=== PATIENT | female | born 1965 | race Caucasian/White ===

== ENCOUNTER → 2016-08-20 | Outpatient (CLI) | payer OTHER ==
--- NOTE | 2016-08-20 16:01 | MA ---
Screening Digital Mammogram With iCAD Analysis Clinical Indications: Routine screening. The patient has a personal history of left breast cancer usman ated with lumpectomy and radiation. She has had other benign biopsies. Her mother was diagnosed with breast cancer in her 50s. Technique: Standard cephalocaudal projections were obtained. Digital breast tomosynthesis was perform ed in the MLO projection with reconstruction at 1.0-mm slice thickness and composite MLO views recons tructed. A skin marker was placed on the left breast lumpectomy scar. This examination was processed by the iCAD computer-aided detection system. Comparison: June 2015, May 2015, May 2014, May 2013, April 2012, April 2011, O ctober 2009, April 2009, April 2008. Breast density: Type D: Extremely dense. Findings: CAD was reviewed. Architectural change at the left breast lumpectomy site is stable. Nodula r asymmetry in the anterior right breast is smaller, consistent with benign cyst aspiration performed previously. No spiculated masses, suspicious calcifications or secondary signs of malignancy are see n. There has been no significant change in the appearance of either breast. Impression: Benign mammography. BI-RADS 2. Recommendation: Routine mammographic screening in one year as long as physical examination is negativ e in this patient with extremely dense breast parenchyma. Counts Include [facility] will send a result letter to the patient. Negative mammography should not preclude additional workup of a clinically suspicious finding. The patient's information is entered into a reminder system with a target due date for her next mammo gram.
== END ==
LOC: FIMAGING 13:21
DX: Z12.31 Encounter for screening mammogram for malignant neoplasm of breast (principal); Z85.3 Personal history of malignant neoplasm of breast; Z80.3 Family history of malignant neoplasm of breast
CPT/HCPCS: G0202

== ENCOUNTER → 2017-08-26 | Outpatient (CLI) | payer OTHER | LOC: FIMAGING 09:05 | PROVIDERS: ATTEND Surgery | DX: Z12.31 Encounter for screening mammogram for malignant neoplasm of breast (principal); Z85.3 Personal history of malignant neoplasm of breast ==

== ENCOUNTER → 2018-09-04 | Outpatient (CLI) | payer OTHER | LOC: FIMAGING 08:59 | PROVIDERS: ATTEND Family Medicine | DX: Z12.31 Encounter for screening mammogram for malignant neoplasm of breast (principal); Z85.3 Personal history of malignant neoplasm of breast; Z80.3 Family history of malignant neoplasm of breast ==

== ENCOUNTER → 2018-11-07 | Outpatient (CLI) | payer OTHER | LOC: FIMAGING 12:27 | PROVIDERS: ATTEND Surgery | DX: N63.20 Unspecified lump in the left breast, unspecified quadrant (principal) ==

== ENCOUNTER 2018-11-13 06:44 | Day surgery (SDC) | payer OTHER ==
[2018-11-13] MEDS ORDERED: LR 1,000 ML IV ONE (06:53)
[2018-11-13] MEDS ORDERED: ceFAZolin 2 GM/DEXTROSE 100 ML IV ONE (06:53)
[2018-11-13] MEDS ORDERED: BUPIVACAINE 0.5% 30 ML SDV ONE (07:54)
--- NOTE | 2018-11-13 08:04 | PDHPUP ---
History & Physical Update H&P update statement: This history and physical update is based on an assessment of the patient which was completed after admission or registration (within 24 hours), but prior to the surgery/procedure. H&P update: H&P reviewed & patient examined, no change in patient's condition since H&P completed
[2018-11-13] MEDS ORDERED: LIDOCAINE 1% 300 MG/30 ML SDV ONE (08:12)
[2018-11-13] MEDS ORDERED: MIDAZOLAM 2 MG/2 ML VIAL ONE (08:17)
[2018-11-13] MEDS ORDERED: MIDAZOLAM 2 MG/2 ML VIAL IVP ONE (08:27)
[2018-11-13] MEDS ORDERED: PROPOFOL 200 MG/20 ML VIAL ONE (08:28)
[2018-11-13] MEDS ORDERED: fentaNYL 100 MCG/2 ML INJ ONE ×2 (08:28→09:13)
--- NOTE | 2018-11-13 08:28 | PDANEPAE ---
ANE Past Medical History - Cardiovascular History Hx Hypertension: No Hx Arrhythmias: No Hx Chest Pain: No Hx Coronary Artery / Peripheral Vascular Disease: No Hx CHF / Valvular Disease: No Hx Palpitations: No Cardiovascular History Comment: high chol - Pulmonary History Hx COPD: No Hx Asthma/Reactive Airway Disease: No Hx Recent Upper Respiratory Infection: No Hx Oxygen in Use at Home: No Hx Sleep Apnea: No Sleep Apnea Screening Result - Last Documented: Negative - Neurologic History Hx Cerebrovascular Accident: No Hx Seizures: No Hx Dementia: No - Endocrine History Hx Diabetes: No Obesity: mild - Renal History Hx Renal Disorders: No - Liver History Hx Hepatic Disorders: No - Neurological & Psychiatric Hx Hx Neurological and Psychiatric Disorders: No - Cancer History Hx Cancer: Yes Cancer History Comment: breast ca - Congenital Disorder History Hx Congenital Disorders: No - GI History GERD: no Hx Gastrointestinal Disorders: No - Other Health History Other Health History: wears glasses - Chronic Pain History Chronic Pain: No - Surgical History Prior Surgeries: 06/21/10 hysteroscopy with Imig. multiple breast surgeries ANE Review of Systems Review of Systems: - Exercise capacity METS (RN): 4 METS ANE Patient History - Allergies Allergies/Adverse Reactions: codeine [Codeine] Allergy (Verified 11/13/18 06:55) Itching - Home Medications Home medications: home medication list seen and reviewed Home Medications: SIMVASTATIN 11/11/18 [Last Taken 11/12/18] - NPO status NPO Status: no food or drink >8 hours NPO Since - Liquids (Date): 11/12/18 NPO Since - Liquids (Time): 21:00 NPO Since - Solids (Date): 11/12/18 NPO Since - Solids (Time): 19:00 - Anes Hx Anes Hx: no prior problems - Smoking Hx Smoking Status: Never smoked - Family Anes Hx Family Hx Anesthesia Complications: none ANE Labs/Vital Signs - Vital Signs Heart Rate: 70 Respiratory Rate: 16 O2 Sat (%): 94 Height: 165.1 cm Weight: 78.471 kg ANE Physical Exam - Airway Neck exam: FROM Mallampati Score: Class 2 Mouth exam: normal dental/mouth exam - Pulmonary Pulmonary: no respiratory distress, no rales or rhonchi, clear to auscultation - Cardiovascular Cardiovascular: regular rate and rhythym, no murmur, rub, or gallop - ASA Status ASA Status: II ANE Anesthesia Plan Anesthesia Plan: MAC
[2018-11-13] MEDS ORDERED: NALOXONE HCL 0.4 MG/ML INJ IVP PRN (08:33)
[2018-11-13] MEDS ORDERED: PROMETHAZINE HCL 25 MG/ML INJ IVP PRN (08:33)
[2018-11-13] MEDS ORDERED: DEXAMETHASONE 4 MG/ML VIAL ONE ×3 (08:36)
[2018-11-13] MEDS ORDERED: ACETAMINOPHEN 500 MG TAB PO PRN (08:41)
[2018-11-13] MEDS ORDERED: LABETALOL HCL 5 MG/ML 20 ML MDV IVP PRN (08:41)
[2018-11-13] MEDS ORDERED: ENALAPRILAT DIHYDRATE 1.25 MG/ML VIAL IVP PRN (08:41)
[2018-11-13] MEDS ORDERED: LR 500 ML IV PRN (08:41)
[2018-11-13] MEDS ORDERED: ONDANSETRON 4 MG/2 ML VIAL IVP PRN (08:41)
--- NOTE | 2018-11-13 08:56 | POSTOPPROG ---
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
[2018-11-13] MEDS: fentaNYL 100 MCG/2 ML INJ IVP PRN ×2 (09:15→09:53)
--- NOTE | 2018-11-13 09:16 | POSTANESTH ---
Post Anesthetic Evaluation Cardiovascular Status: Normal, Stable Respiratory Status: Normal, Stable, Similar to Pre-op Cond. Level of Consciousness/Mental Status: Can Participate in Eval, Alert and Oriented Pain Control: Adequate, Prn Tx Ordered Nausea/Vomiting Control: Adequate, Prn Tx Ordered Complications Possibly Related to Anesthesia: None Noted
--- NOTE | 2018-11-13 10:17 | GOP ---
[f rep st] OPERATIVE REPORT DATE OF OPERATION: 11/13/2018 SURGEON: Jenniffer Dumont MD ANESTHESIA: Monitored anesthesia care with IV sedation. ANESTHESIOLOGIST: Dr. Rizwan Alvares. PREOPERATIVE DIAGNOSIS: Left breast masses. POSTOPERATIVE DIAGNOSIS: Left breast masses. PROCEDURE PERFORMED: Excisional biopsy,left breast. FINDINGS: Two firm nodules medial to nipple and the areola. SPECIMENS: Medial areola. ESTIMATED BLOOD LOSS: 5 cc. INDICATIONS: The patient is a 53-year-old woman who has a history of DCIS status post lumpectomy and radiation 20 years ago. She then developed nodules. Her mammogram did not show any abnormalities. The ultrasound did identify subcu nodules. DESCRIPTION OF PROCEDURE: Patient was brought into the operating room, placed supine on the table. Monitored anesthesia care with IV sedation was performed. Her left breast was prepped and draped in the usual sterile fashion. I made an ellipse of the areola down through into the fatty breast tissue . I sent this to Pathology for permanent. Hemostasis was achieved. The wound was closed with 3-0 V icryl, followed by 4-0 Monocryl. Mastisol, Steri-Strips, and sterile dressing were applied. She was awakened in the operating room and transferred to PACU in stable condition. /[id number]/MODL
[2018-11-13 10:19] VITALS: BP 121/70
== END 2018-11-13 10:20 | disposition home or self-care (01) ==
LOC: FSGY 06:44
PROVIDERS: ATTEND Surgery
PROC: 0HBU0ZX Excision of Left Breast, Open Approach, Diagnostic (ICD-10-PCS; principal; 2018-11-13 08:15)
DX: C50.812 Malignant neoplasm of overlapping sites of left female breast (principal)
CPT/HCPCS: J0690; J1100; J2250; J2704; J3010

== ENCOUNTER → 2018-11-28 | Outpatient (CLI) | payer OTHER ==
[~2018-11-28] MED LIST: GADOBUTROL 10 ML VIAL IVP ONE
== END ==
LOC: FIMAGING 08:43
PROVIDERS: ATTEND Surgery
DX: C50.412 Malignant neoplasm of upper-outer quadrant of left female breast (principal)
CPT/HCPCS: A9585; C8908

== ENCOUNTER 2018-12-09 08:36 | Observation (INO) | payer OTHER ==
[2018-12-09] MEDS ORDERED: GENTAMICIN SULFATE 80 MG/2 ML VIAL ONE (11:46)
[2018-12-09] MEDS ORDERED: BACITRACIN ZINC 0.5 OZ OINTTUBE TP ONE (11:46)
[2018-12-09] MEDS ORDERED: THROMBIN (BOVINE) 20,000 UNIT VIAL TP ONE (11:46)
[2018-12-09] MEDS ORDERED: BUPIVACAINE 0.25% 30 ML SDV ONE (11:46)
[2018-12-09] MEDS ORDERED: METHYLENE BLUE 0.5% 50 MG/10 ML AMP ONE (11:47)
[2018-12-09] MEDS ORDERED: BACITRACIN 50,000 UNITS/10 ML SYR IRR ONE (11:48)
[2018-12-09] MEDS ORDERED: ceFAZolin 1 GM/5 ML SYR ONE (11:48)
[2018-12-09] MEDS ORDERED: ceFAZolin 2 GM/DEXTROSE 100 ML IV ONE (12:02)
[2018-12-09] MEDS ORDERED: LR 1,000 ML IV ONE (12:03)
[2018-12-09] MEDS ORDERED: MIDAZOLAM 2 MG/2 ML VIAL IVP ONE (14:30)
--- NOTE | 2018-12-09 14:33 | PDANEPAE ---
ANE Past Medical History - Cardiovascular History Hx Hypertension: No Hx Arrhythmias: No Hx Chest Pain: No Hx Coronary Artery / Peripheral Vascular Disease: No Hx CHF / Valvular Disease: No Hx Palpitations: No Cardiovascular History Comment: high chol - Pulmonary History Hx COPD: No Hx Asthma/Reactive Airway Disease: No Hx Recent Upper Respiratory Infection: No Hx Oxygen in Use at Home: No Hx Sleep Apnea: No Sleep Apnea Screening Result - Last Documented: Negative - Neurologic History Hx Cerebrovascular Accident: No Hx Seizures: No Hx Dementia: No - Endocrine History Hx Diabetes: No Obesity: no - Renal History Hx Renal Disorders: No - Liver History Hx Hepatic Disorders: No - Neurological & Psychiatric Hx Hx Neurological and Psychiatric Disorders: No - Cancer History Hx Cancer: Yes Cancer History Comment: breast ca - Congenital Disorder History Hx Congenital Disorders: No - GI History GERD: no Hx Gastrointestinal Disorders: No - Other Health History Other Health History: wears glasses - Chronic Pain History Chronic Pain: No - Surgical History Prior Surgeries: 11/13/18 left freast biopsy with Tim. 06/21/10 hysteroscopy with Imig. multiple breast surgeries ANE Review of Systems Review of Systems: - Exercise capacity METS (RN): 4 METS ANE Patient History - Allergies Allergies/Adverse Reactions: chlorhexidine Allergy (Verified 12/08/18 15:32) Itching codeine [Codeine] Allergy (Verified 12/08/18 15:32) Itching - Home Medications Home medications: home medication list seen and reviewed Home Medications: SIMVASTATIN 11/11/18 [Last Taken 11/12/18] Keflex 12/08/18 [Last Taken Unknown] - NPO status NPO Status: no food or drink >8 hours NPO Since - Liquids (Date): 12/09/18 NPO Since - Liquids (Time): 10:00 NPO Since - Solids (Date): 12/08/18 - Anes Hx Anes Hx: no prior problems - Smoking Hx Smoking Status: Never smoked - Family Anes Hx Family Hx Anesthesia Complications: none ANE Labs/Vital Signs - Vital Signs Blood Pressure: 132/76 Heart Rate: 79 Respiratory Rate: 16 O2 Sat (%): 93 Height: 165.1 cm Weight: 78.471 kg ANE Physical Exam - Airway Neck exam: FROM Mallampati Score: Class 2 Mouth exam: normal dental/mouth exam - Pulmonary Pulmonary: no respiratory distress, no rales or rhonchi, clear to auscultation - Cardiovascular Cardiovascular: regular rate and rhythym, no murmur, rub, or gallop - ASA Status ASA Status: II ANE Anesthesia Plan Anesthesia Plan: GA w LMA
[2018-12-09] MEDS ORDERED: DEXMEDETOMIDINE HCL 200 MCG in NS 50 ML IV ONE (14:39)
[2018-12-09] MEDS ORDERED: PROPOFOL 200 MG/20 ML VIAL ONE (15:41)
[2018-12-09] MEDS ORDERED: HYDROmorphONE/DILAUDID 2 MG/ML INJ ONE (15:41)
[2018-12-09] MEDS ORDERED: LIDOCAINE 2% JELLY 6 ML TOPICAL SYR ONE (15:42)
[2018-12-09] MEDS ORDERED: LIDOCAINE 2% 2 ML INJ ONE (15:42)
[2018-12-09] MEDS ORDERED: DEXAMETHASONE 4 MG/ML VIAL ONE ×2 (15:42)
[2018-12-09] MEDS ORDERED: ONDANSETRON 4 MG/2 ML VIAL ONE (15:42)
[2018-12-09] MEDS ORDERED: LIDO/EPI 1% **Not for Epidural 20 ML MDV ONE (15:59)
[2018-12-09] MEDS ORDERED: diphenhydrAMINE 25 MG CAP PO PRN (16:10)
[2018-12-09] MEDS ORDERED: KETAMINE 200 MG/20 ML VIAL ONE (16:11)
[2018-12-09] MEDS ORDERED: ONDANSETRON DISINTEGRATING 4 MG TAB PO PRN (16:13)
[2018-12-09] MEDS ORDERED: ACETAMINOPHEN 325 MG TAB PO PRN (16:13)
[2018-12-09] MEDS ORDERED: ONDANSETRON 4 MG/2 ML VIAL IVP PRN ×2 (16:13→17:18)
[2018-12-09] MEDS ORDERED: PHENYLEPHRINE HCL 100 MCG/ML SYR ONE (16:28)
[2018-12-09] MEDS ORDERED: PROMETHAZINE HCL 25 MG/ML INJ IVP PRN (17:18)
[2018-12-09] MEDS ORDERED: NALOXONE HCL 0.4 MG/ML INJ IVP PRN (17:18)
[2018-12-09] MEDS ORDERED: fentaNYL 100 MCG/2 ML INJ IVP PRN (17:18)
[2018-12-09] MEDS ORDERED: HYDROCODONE/APAP 5/325 TAB PO PRN (17:18)
[2018-12-09] MEDS ORDERED: DIAZEPAM 10 MG/2 ML SYR IVP PRN (17:18)
[2018-12-09] MEDS ORDERED: ACETAMINOPHEN 500 MG TAB PO PRN (17:18)
[2018-12-09] MEDS ORDERED: LR 500 ML IV PRN (17:18)
[2018-12-09] MEDS ORDERED: HYDROmorphONE/DILAUDID 1 MG/ML INJ IVP PRN (17:18)
[2018-12-09] MEDS ORDERED: MEPERIDINE 25 MG/0.5 ML AMP IVP PRN (17:18)
--- NOTE | 2018-12-09 17:25 | POSTOPPROG ---
Post Op Note Date of Operation: 12/09/18 Surgeon: Jenniffer Dumont Subway Operator: zaki Anesthesiologist: elsy Anesthesia: GET(General Endotracheal) Pre-op Diagnosis: L breast ca Post-op Diagnosis: same Indication: 53yo F with h/o DCIS now with multifocal L breast CA Procedure: B mastectomy B SLN bx Findings: none unusual Inf/Abcess present in the surg proc area at time of surgery?: No EBL: Minimal Complications: none immediately postop Bowel Protocol: N/A Clean Closure Performed: N/A Drains: Brian Hernandez Specimen(s): L breast R breast L SLN R SLN
[2018-12-09] MEDS ORDERED: fentaNYL 100 MCG/2 ML INJ ONE (17:53)
--- NOTE | 2018-12-09 17:53 | POSTANESTH ---
Post Anesthetic Evaluation Cardiovascular Status: Normal, Stable, Similar to Pre-Op Cond Respiratory Status: Normal, Stable, Similar to Pre-op Cond. Level of Consciousness/Mental Status: Can Participate in Eval, Mildly Sleepy, Arousable Pain Control: Inadeq, Add Tx Required (Pain 5/10 on arrival.) Nausea/Vomiting Control: Adequate, Prn Tx Ordered Complications Possibly Related to Anesthesia: None Noted
--- NOTE | 2018-12-09 19:21 | GOP ---
[f rep st] OPERATIVE REPORT DATE OF OPERATION: 12/09/2018 SURGEON: Siobhan Barrios Jr., MD ROTOR WINDER: Yobani Wade CST, by surgeon request. ANESTHESIA: General inhalational anesthetic. ANESTHESIOLOGIST: Albert Alvares MD. PREOPERATIVE DIAGNOSIS: Multifocal left breast cancer. POSTOPERATIVE DIAGNOSIS: Multifocal left breast cancer. PROCEDURE PERFORMED: Immediate bilateral breast reconstruction utilizing tissue expanders and human dermal allograft. FINDINGS: ESTIMATED BLOOD LOSS: During reconstruction, less than 10 cc. INDICATIONS: The patient is a 53-year-old white female who has a recurrent left-sided multifocal lazaro ast cancer. She elected to undergo bilateral skin-sparing mastectomies and was referred by Dr. Kasie Dumont to discuss reconstructive options. She was deemed an excellent candidate for prepectoral plac ement of AlloDerm-wrapped tissue expanders and at the time of mastectomies was taken to in the operat ing room for that purpose. DESCRIPTION OF PROCEDURE: After the risks and benefits of the procedure were explained the patient, formal operative consent was obtained. She was seen in the operating room. After adequate inhalatio nal general anesthesia was provided by Dr. Rizwan Alvares, her premarked mastectomy incisions were injec ovidio with lidocaine containing adrenaline. She was prepped and draped in normal sterile fashion. Unc omplicated bilateral mastectomies with sentinel lymph node mapping were performed by Dr. Dumont. Ravindra nstruction began by rinsing the pockets with normal saline. Meticulous hemostasis was assured. The pockets were then rinsed with triple antibiotic saline solution. During the mastectomies, tissue exp david had been prepared. These were Allergan Natrelle 133+ FX 450 cc devices. They were tested, fi lled with 450 cc with air and then wrapped with AlloDerm that had been triple soaked in normal saline and soaked in triple antibiotic saline. The AlloDerm was trimmed to ensure a smooth and even contou r over the fully expanded tissue strike planning applications. The tissue expanders were then deflated, soaked in triple antibiotic saline, and at the completion of the mastectomy, they were placed into the mastectomy cav ity into the correct anatomic position. They were sutured down to the chest wall using 2-0 PDS sutur e. They were deflated to 150 cc total fill volume to minimize tension on the skin flaps. The skin e dges were reapproximated using everting deep dermal 3-0 Monocryl suture and further everted using ankur gical luly. Prior to closure, a 15-round drain was placed in the each side along with 15 cc of 0. 25% plain Marcaine. She had bacitracin, Xeroform and 4x4s applied to her incisions with a compressiv e bra. Skin flaps were warm and pink with good capillary refill. She was extubated in the operating room, taken to the recovery room awake in a stable condition. TISSUE EXPANDERS: Allergan Natrelle 133+ FX 450 cc devices filled to 150 cc bilaterally. DRAINS: Two NEHA drains placed. COMPLICATIONS: No complications. /[id number]/MODL
[2018-12-09] MEDS: HYDROCODONE/APAP 5/325 TAB PO PRN (19:59)
[2018-12-09] MEDS: CYCLOBENZAPRINE 10 MG TAB PO SCH (21:48)
[2018-12-10] MEDS: HYDROCODONE/APAP 5/325 TAB PO PRN ×2 (00:06→05:38)
--- NOTE | 2018-12-10 07:35 | SOAPPROG ---
SOAP Progress Note Assessment/Plan: Assessment/Plan: 53yo F POD#1 s/p B mastectomy with B SLN bx for multifocal breast ca Pain controlled Drain output thin Ambulating independently Dispo: DC today. S: feeling fine this am. pain well controlled. O: comfortable in NAD incisions CDI Dressings intact Objective: Vital Signs Temp Pulse Resp BP Pulse Ox 36.7 C 49 L 16 157/83 H 98 12/10/18 05:32 12/10/18 05:32 12/10/18 05:32 12/10/18 05:32 12/10/18 05:32 12/09/18 12/10/18 12/11/18 05:59 05:59 05:59 Intake Total 200 Output Total 278 Balance -78 ICD10 Worksheet Patient Problems: Problems Problem Status Onset Breast cancer Acute - ICD10 Problem Qualifiers (1) Breast cancer
[2018-12-10] MEDS: CYCLOBENZAPRINE 10 MG TAB PO SCH (08:18)
[2018-12-10 08:48] VITALS: BP 158/77
[2018-12-10] MEDS ORDERED: ATORVASTATIN CALCIUM 20 MG TAB PO SCH (09:00)
--- NOTE | 2018-12-10 09:52 | ASDISCHSUM ---
Discharge Information Plan Status:Home with No Needs Medically Cleared to Leave: Discharge Date: CM D/C Disposition: ADT D/C Disposition:Home, Routine, Self-Care Projected Discharge Date: Transportation at D/C: Discharge Delay Reason: Follow-Up Date: Discharge Slot: Final Diagnosis: Placement Information Patient Contact Information Contact Name:TIFFANIE Relationship: Address:[address] Home Phone: City:[place] Alternate Phone: State/Zip Code:[place] [address] Email: Financial Information Financial Class:[facility] Primary Plan Desc:[facility] Primary Plan Number:[id number] Secondary Plan Desc: Secondary Plan Number: Assessment Information LACE LACE Length of stay for Answers: Less than 1 day current admission Acuity / Level of Answers: Yes Care: Did the patient have an inpatient admission? # of Emergency department Answers: 0 visits in the last 6 months Score: 3 Date Signed: 12/10/2018 09:46 AM Electronically Signed By:Kenyetta Corey Intervention Information
--- NOTE | 2018-12-12 07:48 | GDS ---
[f rep st] DISCHARGE SUMMARY ADMITTING DIAGNOSIS: Left breast multifocal invasive ductal carcinoma. SECONDARY DIAGNOSES: 1. History of ductal carcinoma in situ. 2. Hyperlipidemia. REASON FOR ADMISSION: A 53-year-old woman with a history of left breast DCIS who underwent lumpectom y. She then recently developed several subcutaneous nodules. Excisional biopsy was performed, which showed invasive ductal carcinoma. An MRI showed multiple nodular areas suspicious for multifocal di sease. She presents at this time for bilateral mastectomy with reconstruction by Dr. Barrios, observ ation, and pain control. HOSPITAL COURSE: On 12/09/2018, she was taken to the operating room by Dr. Jenniffer Dumont for bilateral mastectomy with bilateral sentinel lymph node biopsy followed by reconstruction by Dr. Barrios. At the time of dictation, pathology is still pending. On postoperative day #1, her pain was well contro lled with oral pain medication and Flexeril. She was tolerating antibiotics, tolerating regular diet , and ambulating independently. She was ready for discharge home. DISCHARGE CONDITION: Being discharged home in stable condition. Pain is well controlled with oral p ain medication, tolerating regular diet, and ambulating independently. DISCHARGE MEDICATIONS: She had prescriptions previously filled by Dr. Barrios including [place], Flexe ril, and Keflex. She will continue these medications as directed. Continue home medications. Carlos gay see EMR for further details. DISCHARGE INSTRUCTIONS AND FOLLOWUP: Activity restrictions per Dr. Barrios. She will follow up with Dr. Barrios as previously scheduled. She will follow up with Dr. Dumont in 2 weeks. Empty and recor d NEHA drain output daily. Change dressings as needed. We will call her with the results of the patho logy. Call with any worsening symptoms, questions, or concerns. /[id number]/MODL
== END 2018-12-10 11:35 | disposition home or self-care (01) ==
LOC: F3N 11:38 → F1N 19:00
PROVIDERS: ADMIT Surgery; ATTEND Surgery
PROC: 0HTV0ZZ Resection of Bilateral Breast, Open Approach (ICD-10-PCS; principal; 2018-12-09 14:30)
PROC: 07B60ZX Excision of Left Axillary Lymphatic, Open Approach, Diagnostic (ICD-10-PCS; principal; 2018-12-09 14:30)
PROC: 07B50ZX Excision of Right Axillary Lymphatic, Open Approach, Diagnostic (ICD-10-PCS; principal; 2018-12-09 14:30)
PROC: 0HRV0JZ Replacement of Bilateral Breast with Synthetic Substitute, Open Approach (ICD-10-PCS; 2018-12-09 14:30)
PROC: 3E0W3KZ Introduction of Other Diagnostic Substance into Lymphatics, Percutaneous Approach (ICD-10-PCS; 2018-12-09 14:30)
DX: C50.812 Malignant neoplasm of overlapping sites of left female breast (principal)
CPT/HCPCS: 19303; 19340; 38525; 78195; A9520; G0378; J0690; J1100; J1170; J1580; J2250; J2370; J2405; J2704; J3010; Q4116; Q9968